=== PATIENT | male | born 1955 | race Caucasian/White ===

== ENCOUNTER → 2018-11-04 | Outpatient (REF) | payer BC, OTHER ==
[2018-11-04 13:21] LABS: BLOOD UREA NITROGEN 18 MG/DL (7-18); CARBON DIOXIDE LEVEL 26 MEQ/L (21-32); CHLORIDE LEVEL 107 MEQ/L (98-107); CHOLESTEROL LEVEL 182 MG/DL (<200); CHOLESTEROL RISK RATIO 3.309 (<5); GLOMERULAR FILTRATION RATE > 60.0 (>49); GLUCOSE, FASTING 89 MG/DL (70-100); HDL CHOLESTEROL 55 MG/DL (>40); LDL CHOLESTEROL 119 MG/DL (<100); NON-HDL-C 127 MG/DL; POTASSIUM SERUM 4.7 MEQ/L (3.5-5.1); SODIUM LEVEL 141 MEQ/L (136-145); TRIGLYCERIDES LEVEL 40 MG/DL (<150)
== END ==
LOC: M SFHCADAM 10:42
PROVIDERS: ATTEND Family Medicine
DX: E78.00 Pure hypercholesterolemia, unspecified (principal); I10 Essential (primary) hypertension

== ENCOUNTER → 2019-07-16 | Outpatient (REF) | payer BC, OTHER ==
[2019-07-16 14:20] LABS: CHOLESTEROL RISK RATIO 3.96 (<5)
== END ==
LOC: M SFHCADAM 07:56
PROVIDERS: ATTEND Family Medicine
DX: E78.00 Pure hypercholesterolemia, unspecified (principal)

== ENCOUNTER 2019-08-20 11:55 | Day surgery (SDC) | payer BC, OTHER ==
[~2019-08-20] VITALS: Ht 177.8 cm; Wt 94.3 kg
[~2019-08-20 11:55] MED LIST: LISI-538 PO; NS 1,000 ML IV ONE; SIMV20TA22 PO
[2019-08-20] MEDS ORDERED: LIDOCAINE 2% INJ 100 MG/5 ML SDV (FOR ANES.) As Ordered ONE (13:23)
[2019-08-20] MEDS ORDERED: propofoL 200 MG/20 ML VIAL As Ordered ONE (13:23)
--- NOTE | 2019-08-20 14:03 | ROOR ---
Patient Name: Emigdio Ruiz Procedure Date: 08/20/2019 1:16 PM Date of : 1955 Age: 64 Room: [facility] [place] Gender: Male Note Status: Finalized Procedure: Colonoscopy Indications: Screening for colorectal malignant neoplasm Providers: Gerard Huddleston MD Referring MD: Jaci CROWLEY DO Requesting Provider: Medicines: Monitored Anesthesia Care Complications: No immediate complications. Procedure: Pre-Anesthesia Assessment: - Prior to the procedure, a History and Physical was performed, and patient medications and allergies were reviewed. The patient is competent. The risks and benefits of the procedure and the sedation options and risks were discussed with the patient. All questions were answered and informed consent was obtained. Patient identification and proposed procedure were verified by the physician, the nurse and the anesthesiologist in the endoscopy suite. Mental Status Examination: alert and oriented. Airway Examination: normal oropharyngeal airway and neck mobility. Respiratory Examination: clear to auscultation. CV Examination: normal. Prophylactic Antibiotics: The patient does not require prophylactic antibiotics. Prior Anticoagulants: The patient has taken no previous anticoagulant or antiplatelet agents. ASA Grade Assessment: II - A patient with mild systemic disease. After reviewing the risks and benefits, the patient was deemed in satisfactory condition to undergo the procedure. The anesthesia plan was to use monitored anesthesia care (MAC). Immediately prior to administration of medications, the patient was re-assessed for adequacy to receive sedatives. The heart rate, respiratory rate, oxygen saturations, blood pressure, adequacy of pulmonary ventilation, and response to care were monitored throughout the procedure. The physical status of the patient was re-assessed after the procedure. The Colonoscope was introduced through the anus and advanced to the cecum, identified by appendiceal orifice and ileocecal valve. The colonoscopy was somewhat difficult due to a redundant colon. The patient tolerated the procedure well. The quality of the bowel preparation was excellent. Findings: The perianal and digital rectal examinations were normal. Four flat polyps were found in the rectum, sigmoid colon, transverse colon and cecum. The polyps were 2 to 5 mm in size. These polyps were removed with a cold snare. Resection and retrieval were complete. Estimated blood loss was minimal. A few small-mouthed diverticula were found in the sigmoid colon. The retroflexed view of the distal rectum and anal verge was normal and showed no anal or rectal abnormalities. Impression: - Four 2 to 5 mm polyps in the rectum, in the sigmoid colon, in the transverse colon and in the cecum, removed with a cold snare. Resected and retrieved. - Diverticulosis in the sigmoid colon. - The distal rectum and anal verge are normal on retroflexion view. Recommendation: - Discharge patient to home (ambulatory). - High fiber diet. - Repeat colonoscopy in 5 years for surveillance of multiple polyps. - Await pathology results. Gerard Huddleston MD Gerard Huddleston MD 08/20/2019 2:02:56 PM Electronically signed by Gerard Huddleston MD Number of Addenda: 0 Note Initiated On: 08/20/2019 1:16 PM Estimated Blood Loss: Estimated blood loss was minimal.
[2019-08-20 14:25] VITALS: BP 128/87
== END 2019-08-20 14:41 | disposition home or self-care (01) ==
LOC: M OPP 11:55
PROVIDERS: ATTEND Surgery
DX: Z12.11 Encounter for screening for malignant neoplasm of colon (principal); K62.1 Rectal polyp; D12.5 Benign neoplasm of sigmoid colon; D12.3 Benign neoplasm of transverse colon; D12.0 Benign neoplasm of cecum; K57.30 Diverticulosis of large intestine without perforation or abscess without bleeding; Z79.899 Other long term (current) drug therapy

== ENCOUNTER → 2019-09-01 | Outpatient (REF) | payer BC, OTHER ==
[~2019-09-01] MED LIST changes: -NS 1,000 ML IV ONE
[2019-09-01 20:03] LABS: BLOOD UREA NITROGEN 16 MG/DL (7-18); CREATININE FOR GFR 1.14 MG/DL (0.70-1.30); GLOMERULAR FILTRATION RATE > 60.0 (>49); PROSTATIC SPECIFIC AG MONITOR 0.81 NG/ML (< 4.00)
== END ==
LOC: M LABDRWAD 19:10
PROVIDERS: ATTEND Physician Assistant
DX: D41.8 Neoplasm of uncertain behavior of other specified urinary organs (principal)